=== PATIENT | male | born 1965 | race African-American/Black ===

== ENCOUNTER 2016-05-14 13:51 | Emergency (ER) | payer OTHER ==
[~2016-05-14] VITALS: Ht 177.8 cm; Wt 93.9 kg
[2016-05-14 14:43] LABS: ABSOLUTE BASOPHIL COUNT 0 /CUMM (0.0-0.2); ABSOLUTE EOSINOPHIL COUNT 0.2 /CUMM (0.0-0.7); ABSOLUTE GRANULOCYTE CT 2.4 /CUMM (1.4-6.5); ABSOLUTE LYMPH COUNT 1.2 /CUMM (1.2-3.4); ABSOLUTE MONOCYTE COUNT 0.4 /CUMM (0.10-0.60); BASOPHIL % 0.8 % (0.0-2.0); EOSINOPHIL % 4.5 % (0-5); GRANULOCYTE % 56.4 % (42.2-75.2); HEMATOCRIT 41.7 % (42-52); MEAN CORPUSCULAR HGB 22.9 PG (27.0-31.0); MEAN CORPUSCULAR HGB CONC 31.9 G/DL (33.0-37.0); MEAN CORPUSCULAR VOLUME 71.8 FL (80.0-94.0); MEAN PLATELET VOLUME 7.5 FL (7.4-10.4); PLATELET COUNT 318 /CUMM (130-400); RBC DISTRIBUTION WIDTH 16.9 % (11.5-14.5); RED BLOOD CELL CT 5.81 /CUMM (4.70-6.10); WHITE BLOOD CELL COUNT 4.2 /CUMM (4.8-10.8)
[2016-05-14] MEDS ORDERED: PROBIOTIC250 MG PO (15:47)
[2016-05-14] MEDS ORDERED: METFORMIN HCL500 M3 PO (15:48)
[2016-05-14] MEDS ORDERED: ATORVASTATIN CA20 M1 PO (15:48)
[2016-05-14] MEDS ORDERED: HYDROCHLOROTHIA25 M1 PO (15:48)
[2016-05-14] MEDS ORDERED: RANITIDINE HCL150 MG PO (15:48)
[2016-05-14] MEDS ORDERED: LOSARTAN POTASS25 M1 PO (15:49)
[2016-05-14] MEDS ORDERED: MULTI-DAY VITA1 EACH PO (15:49)
[2016-05-14] MEDS ORDERED: ASPIRIN EC81 M1 PO (15:50)
[2016-05-14] MEDS ORDERED: ADVIL MIGRAINE200 M1 PO (15:51)
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
--- NOTE | 2016-05-14 17:55 | RADIOLOGY REPORT ---
EXAMINATION: XR CHEST CLINICAL INFORMATION: Right-sided pain. COMPARISON: None TECHNIQUE: 2 views of the chest were obtained. FINDINGS: Lungs are clear. No pulmonary vascular congestion. No infiltrate or pleural effusion. The heart size is normal. The cardiac and mediastinal contours are normal. There are multilevel degenerative changes of dorsal spine. IMPRESSION: Unremarkable examination.
[2016-05-14] MEDS ORDERED: NAPROSYN500 M1 PO (17:58)
[2016-05-14] MEDS ORDERED: CYCLOBENZAPRINE5 M2 PO (17:58)
[2016-05-14 19:01] VITALS: BP 152/96
== END 2016-05-14 19:01 ==
LOC: ERH 13:51
PROVIDERS: Emergency Medicine
DX: S39.011A Strain of muscle, fascia and tendon of abdomen, initial encounter (principal); X58.XXXA Exposure to other specified factors, initial encounter
CPT/HCPCS: 74177; 81001; 93005; 93010; 96374; J1885